=== PATIENT | female | born 1960 | race Caucasian/White ===

== ENCOUNTER 2017-01-07 18:20 | Emergency (ER) | payer MEDICARE ==
[~2017-01-07] VITALS: Ht 162.6 cm; Wt 90.7 kg
[2017-01-07 19:21] LABS: BASO # 0.1 x10^3/uL (0.0-0.2); BASO % 2 % (0-3); EOS % 5 % (0-3); HEMATOCRIT 41.4 % (36.0-47.0); LYMPH # 3.5 x10^3/uL (1.0-4.8); LYMPH % 45 % (24-48); MEAN CORPUSCULAR HEMOGLOBIN 33 pg (25-35); MEAN CORPUSCULAR HGB CONC 34 g/dL (31-37); MEAN CORPUSCULAR VOLUME 97 fL (79-100); MONO % 9 % (0-9); NEUT % 40 % (31-73); PLATELET COUNT 324 x10^3/uL (140-400); RED BLOOD COUNT 4.28 x10^6/uL (3.50-5.40); RED CELL DISTRIBUTION WIDTH 15.6 % (11.5-14.5); WHITE BLOOD COUNT 7.8 x10^3/uL (4.0-11.0)
[2017-01-07 19:26] LABS: BILIRUBIN,URINE NEGATIVE (NEG); GLUCOSE,URINE NEGATIVE (NEG); NITRITE,URINE NEGATIVE (NEG); PH,URINE 5.5; PROTEIN,URINE NEGATIVE (NEG-TRACE); UROBILINOGEN,URINE 0.2 mg/dL (0.2 mg/dL)
--- NOTE | 2017-01-07 19:27 | PHYS DOC ---
Past Medical History Past Medical History: Anxiety, Depression, Diverticulosis, Kidney Stone Additional Past Medical Histor: BILATERAL EAR INFECTION Past Surgical History: Tubal ligation Additional Past Surgical Histo: Bladder, bilateral ear. Alcohol Use: Occasionally Drug Use: None Adult General Chief Complaint Chief Complaint: ABDOMINAL PAIN HPI HPI 56-year-old female presenting to the emergency department with right-sided flank pain. She describes it as sharp intermittent and radiates down to the right lower quadrant and groin and without alleviating factors. She denies nausea or vomiting. She reports a history of kidney stones and a history of surgical tubal ligation. Review of systems is negative for chest pain shortness of breath fevers chills polyuria or dysuria. She denies hematuria. All other review of systems is negative unless otherwise noted in history of present illness. ED course: 56-year-old female presenting with right flank pain. Initial vital signs showed the patient be tachycardic and afebrile. Patient appeared uncomfortable in the examination room unable to find a comfortable position, fidgety. Soft nontender abdomen without rebound tenderness or guarding present. Negative McBurneys point. Negative De Paz sign. No ecchymosis present. Blood work obtained, IV fluids administered along with nausea and pain medications. CT the abdomen pelvis ordered. Workup unremarkable. Patient was then discharged home with oral pain medications to follow-up with in the next few days. The patient was then discharged home in stable condition to follow up with their primary care physician over the next 2-3 days. They were to return if their symptoms worsened or if they were concerned for any reason. [id number] discharge instructions and return precautions were given. Patient's questions were answered to their satisfaction. Patient is comfortable plan. Review of Systems Review of Systems SEE ABOVE. Current Medications Current Medications Current Medications Medications (Trade) Dose Ordered Sig/Camille Start Time Stop Time Status Last Admin Dose Admin Hydromorphone HCl (Dilaudid) 0.5 mg PRN Q1HR PRN 01/07/17 19:30 01/08/17 19:29 01/07/17 19:39 0.5 MG Ondansetron HCl (Zofran) 4 mg 1X ONCE 01/07/17 19:45 01/07/17 19:46 DC 01/07/17 19:38 4 MG Sodium Chloride 1,000 ml @ 1,000 mls/hr 1X ONCE 01/07/17 19:30 01/07/17 20:29 DC 01/07/17 19:38 1,000 MLS/HR Allergies Allergies Allergies Coded Allergies Type Severity Reaction Last Updated Verified No Known Drug Allergies 07/11/14 No Physical Exam Physical Exam SEE ABOVE Constitutional: Well developed, well nourished, non-toxic appearance. [] HENT: Normocephalic, atraumatic, bilateral external ears normal, oropharynx moist, no oral exudates, nose normal. [] Eyes: PERRLA, EOMI, conjunctiva normal, no discharge. [] Neck: Normal range of motion, no tenderness, supple, no stridor. [] Cardiovascular:Heart rate regular rhythm, no murmur [] Lungs & Thorax: Bilateral breath sounds clear to auscultation [] Abdomen: Bowel sounds normal, soft, no tenderness, no masses, no pulsatile masses. [] Skin: Warm, dry, no erythema, no rash. [] Back: No tenderness, no CVA tenderness. [] Extremities: No tenderness, no cyanosis, no clubbing, ROM intact, no edema. [] Neurologic: Alert and oriented X 3, normal motor function, normal sensory function, no focal deficits noted. [] Psychologic: Affect normal, judgement normal, mood normal. [] Current Patient Data Vital Signs Vital Signs Date Time Temp Pulse Resp B/P (MAP) Pulse Ox O2 Delivery O2 Flow Rate FiO2 01/07/17 19:39 18 96 Room Air 01/07/17 19:00 98 138/95 (109) 01/07/17 18:29 97.9 97.9 Lab Values Laboratory Tests Test 01/07/17 19:10 White Blood Count 7.8 x10^3/uL (4.0-11.0) Red Blood Count 4.28 x10^6/uL (3.50-5.40) Hemoglobin 14.0 g/dL (12.0-15.5) Hematocrit 41.4 % (36.0-47.0) Mean Corpuscular Volume 97 fL (79-100) Mean Corpuscular Hemoglobin 33 pg (25-35) Mean Corpuscular Hemoglobin Concent 34 g/dL (31-37) Red Cell Distribution Width 15.6 % (11.5-14.5) H Platelet Count 324 x10^3/uL (140-400) Neutrophils (%) (Auto) 40 % (31-73) Lymphocytes (%) (Auto) 45 % (24-48) Monocytes (%) (Auto) 9 % (0-9) Eosinophils (%) (Auto) 5 % (0-3) H Basophils (%) (Auto) 2 % (0-3) Neutrophils # (Auto) 3.1 x10^3uL (1.8-7.7) Lymphocytes # (Auto) 3.5 x10^3/uL (1.0-4.8) Monocytes # (Auto) 0.7 x10^3/uL (0.0-1.1) Eosinophils # (Auto) 0.4 x10^3/uL (0.0-0.7) Basophils # (Auto) 0.1 x10^3/uL (0.0-0.2) Urine Collection Type Unknown Urine Color Yellow Urine Clarity Clear Urine pH 5.5 Urine Specific [place] 1.010 Urine Protein Negative mg/dL (NEG-TRACE) Urine Glucose (UA) Negative mg/dL (NEG) Urine Ketones (Stick) Negative mg/dL (NEG) Urine Blood Negative (NEG) Urine Nitrite Negative (NEG) Urine Bilirubin Negative (NEG) Urine Urobilinogen Dipstick 0.2 mg/dL (0.2 mg/dL) Urine Leukocyte Esterase Negative (NEG) Urine RBC 0 /HPF (0-2) Urine WBC 0 /HPF (0-4) Urine Squamous Epithelial Cells Few /LPF Urine Bacteria 0 /HPF (0-FEW) Sodium Level 146 mmol/L (136-145) H Potassium Level 4.1 mmol/L (3.5-5.1) Chloride Level 111 mmol/L (98-107) H Carbon Dioxide Level 24 mmol/L (21-32) Anion Gap 11 (6-14) Blood Urea Nitrogen 20 mg/dL (7-20) Creatinine 0.8 mg/dL (0.6-1.0) Estimated GFR (Cockcroft-Gault) 74.7 BUN/Creatinine Ratio 25 (6-20) H Glucose Level 98 mg/dL (70-99) Calcium Level 8.2 mg/dL (8.5-10.1) L Total Bilirubin 0.3 mg/dL (0.2-1.0) Aspartate Amino Transferase (AST) 21 U/L (15-37) Alanine Aminotransferase (ALT) 28 U/L (14-59) Alkaline Phosphatase 101 U/L (46-116) Troponin I Quantitative < 0.017 ng/mL (0.000-0.055) Total Protein 6.3 g/dL (6.4-8.2) L Albumin 3.6 g/dL (3.4-5.0) Albumin/Globulin Ratio 1.3 (1.0-1.7) Lipase 197 U/L (73-393) Laboratory Tests 01/07/17 19:10 Laboratory Tests 01/07/17 19:10 EKG EKG [] Radiology/Procedures Radiology/Procedures [] Course & Med Decision Making Course & Med Decision Making Pertinent Labs and Imaging studies reviewed. (See chart for details) [] Dragon Disclaimer Dragon Disclaimer This electronic medical record was generated, in whole or in part, using a voice recognition dictation system. Departure Departure Impression: Primary Impression: Right flank pain Disposition: HOME, SELF-CARE Condition: STABLE Referrals: STEPHANY VAUGHN (PCP) Patient Instructions: Flank Pain Additional Instructions: Thank you for allowing us to participate in your care today. Followup with your primary care physician in 3 days if your symptoms do not improve. Call your Primary Doctor tomorrow and inform them of your visit today. If you do not have a primary care provider you can ask for a list of our primary care providers. Return to the emergency department you have any new or concerning findings. This should be evaluated by the primary care physician and any necessary consulting services for continued management within a few days after discharge. Return to emergency room if you have any new or concerning symptoms including but not limited to fever, chills, nausea, vomiting, intractable pain, any new rashes, chest pain, shortness of air, uncontrolled bleeding, difficulty breathing, and/or vision loss. You may have been prescribed medication that can change in your level of thinking and ability to operate machinery. These medications include hydrocodone and Ativan. Also, Benadryl has been known to do this as well. Be sure to check with your pharmacist and ask if the medications you've prescribed can affect your level of consciousness. I recommend not operating heavy machinery or driving while on medication such as these. Scripts Hydrocodone Bit/Acetaminophen (HYDROCODONE-APAP 5-325 ) 1 Each Tablet 1 TAB PO PRN Q6HRS Y for PAIN, #15 TAB 0 Refills Be careful as this medication may cause you to be drowsy or tired. Do not drive on this medication. Prov: BLAYNE AYALA MD 01/07/17 BLAYNE AYALA MD Jan 07, 2017 19:27
[2017-01-07] MEDS ORDERED: IV NORMAL SALINE 1000ML BAG 1,000 ML IV ONE (19:30)
[2017-01-07 19:39] LABS: BACTERIA,URINE 0 /HPF (0-FEW); RBC,URINE 0 /HPF (0-2); SQUAMOUS EPITHELIAL CELL,UR FEW /LPF; WBC,URINE 0 /HPF (0-4)
[2017-01-07] MEDS: HYDROmorphone 2 MG/ML VIAL IV PRN ×2 (19:39→21:13)
[2017-01-07 19:40] LABS: CALCIUM 8.2 mg/dL (8.5-10.1); CREATININE 0.8 mg/dL (0.6-1.0); GFR 74.7; POTASSIUM 4.1 mmol/L (3.5-5.1)
[2017-01-07] MEDS ORDERED: ONDANSETRON PF 4 MG/2 ML VIAL. IV ONE (19:45)
[2017-01-07 19:49] LABS: ALBUMIN 3.6 g/dL (3.4-5.0); ALBUMIN/GLOBULIN RATIO 1.3 (1.0-1.7); TOTAL BILIRUBIN 0.3 mg/dL (0.2-1.0); TOTAL PROTEIN 6.3 g/dL (6.4-8.2)
--- NOTE | 2017-01-07 20:08 | RAD ---
CT abdomen and pelvis without contrast Indication:severe Rt flank pain today, hx kidney stones, prior sent. . Technique: Contiguous axial images are obtained through the abdomen and pelvis. No intravenous or oral contrast per request. Multiplanar reformatted images obtained. Exposure: One or more of the following individualized dose reduction techniques were utilized for this examination: 1. Automated exposure control 2. Adjustment of the mA and/or kV according to patient size 3. Use of iterative reconstruction technique. Comparison:July 17, 2014. Findings: Urinary tracts: No evidence of urinary tract calculus. No evidence of hydronephrosis or ureteric dilatation. Evaluation of solid viscera, bowel and vasculature is compromised by the noncontrast technique. Lower thorax: Lung bases are clear. Pneumoperitoneum:No gross pneumoperitoneum. Liver: Unremarkable Spleen: Unremarkable Pancreas: Unremarkable Kidneys: No apparent abnormality. Adrenals:No evidence of mass. Gallbladder: No calcified stone Aorta: Abdominal aorta is nonaneurysmal Lymph nodes: No significant enlargement GI tract: Small hiatal hernia. No bowel obstruction. A few small colonic diverticula are noted. Mild retained stool throughout the colon. Appendix: Not clearly visualized. Small fat-containing anterior abdominal wall hernia is again identified. Ascites: No gross ascites. Urinary bladder: Not opacified and not adequately distended for evaluation. No evidence of pelvic mass. Bones: Multilevel spondylosis of the visualized spine. IMPRESSION: No evidence of urinary tract calculus or obstruction. No acute findings. Mild constipation. Electronically signed by: Walter Green MD (01/07/2017 8:05 PM) [id number]
[2017-01-07] MEDS ORDERED: HYDR-2758 PO (20:21)
[2017-01-07 21:30] VITALS: BP 111/66
== END 2017-01-07 22:00 | disposition home or self-care (01) ==
LOC: ER 18:20
DX: R10.9 Unspecified abdominal pain (principal); R00.0 Tachycardia, unspecified; F41.9 Anxiety disorder, unspecified; F32.9 Major depressive disorder, single episode, unspecified; Z87.442 Personal history of urinary calculi; Z98.51 Tubal ligation status
CPT/HCPCS: 36415; 74176; 80053; 81001; 83690; 84484; 85027; 96361; 96374; 96375; 99285; J1170; J2405; J7030

== ENCOUNTER → 2020-01-14 | Outpatient (CLI) | payer OTHER ==
[~2020-01-14] MED LIST: HYDR-2761 PO
--- NOTE | 2020-01-16 11:23 | SLEEP ---
DATE OF STUDY: 01/15/2020 SLEEP STUDY REFERRING PHYSICIAN: Erum Babin DO The patient is a 59-year-old who weighs 218 pounds with a BMI of 38.6. The patient's Casanova score was 23. The patient underwent home sleep study performed at [facility]. Total recording time was 200 minutes. During the night of the study, the patient had 41 obstructive apneas, 47 mixed apneas, no central apneas and 5 hypopneas. The patient's AHI was 27.8 per hour. Nocturnal oximetry study revealed an average oxygen saturation 95% with the lowest of 83%. A 1.1 minutes were spent in oxygen saturation less than 90%. Mean heart rate 92 beats per minute. IMPRESSION: 1. Moderate obstructive sleep apnea at an AHI of 27.8 per hour. 2. No significant nocturnal hypoxia. RECOMMENDATIONS: 1. The patient would benefit from treatment of sleep apnea with CPAP. 2. Once the patient is optimally treated then follow up in 4-6 weeks to assess compliance with CPAP and to document clinical improvement. 3. Weight loss is advised. 4. Avoid [employer] depressants. 5. Cautioned regarding driving until symptoms of sleep apnea resolve with the use of CPAP. LOUIE APPIAH MD DR: GERBER/filiberto JOB#: [id number] / [id number] ERUM Sanchez DO
== END | disposition home or self-care (01) ==
LOC: RT 12:01
PROVIDERS: ATTEND Family Medicine
DX: G47.10 Hypersomnia, unspecified (principal)
CPT/HCPCS: G0399

== ENCOUNTER → 2020-11-03 | Outpatient (CLI) | payer OTHER ==
--- NOTE | 2020-11-03 12:23 | KCIC ---
EXAM: Right knee, 3 views. HISTORY: Pain. Falls. COMPARISON: None. FINDINGS: 3 views of the right knee are obtained. There is mild tricompartmental joint space narrowin g and spurring. There is a small joint effusion. There is a corticated ossicle superior to the anteri or tibial tubercle, likely due to the sequela of remote Lawrence-Schlatter disease. IMPRESSION: 1. Mild tricompartmental osteoarthritis of the right knee with small joint effusion. 2. No acute osseous finding. Electronically signed by: Poly Holland MD (11/03/2020 12:20 PM) [id number]
== END ==
LOC: KCIC 11:09
PROVIDERS: ATTEND Family Medicine
DX: M17.11 Unilateral primary osteoarthritis, right knee (principal)
CPT/HCPCS: 73562

== ENCOUNTER → 2021-08-26 | Outpatient (CLI) | payer MEDICARE ==
[~2021-08-26] MED LIST changes: +ACET500T68 PO
--- NOTE | 2021-08-26 13:17 | KCIC ---
XR CHEST 2V INDICATION: COUGH. UNEXPLAINED COUGH SINCE COMPARISON STUDY: None. FINDINGS: Lungs: Normal lung volume. No pulmonary mass or consolidation. The tracheobronchial tree and hilar st ructures are normal. Pleura: No pleural effusion or pneumothorax. Heart and Mediastinum: The cardiomediastinal silhouette is normal. The great vessels of the thorax ar e normal. Bones and Soft Tissues: Degenerative changes of the spine. IMPRESSION: No acute cardiopulmonary process. Electronically signed by: Zion Stock MD (08/26/2021 1:15 PM) [id number]
== END ==
LOC: KCIC 10:06
PROVIDERS: ATTEND Family Medicine
DX: R05.9 Cough, unspecified (principal); M47.819 Spondylosis without myelopathy or radiculopathy, site unspecified
CPT/HCPCS: 71046

== ENCOUNTER 2021-08-29 08:59 | Emergency (ER) | payer MEDICARE ==
[~2021-08-29] VITALS: Ht 160 cm; Wt 133.8 kg
[~2021-08-29 08:59] MED LIST changes: -ACET500T68 PO
[2021-08-29] MEDS ORDERED: ACETAMINOPHEN 500 MG TABLET PO ONE (09:45)
[2021-08-29] MEDS ORDERED: oxyCODONE IR 5 MG TABLET PO ONE (09:45)
--- NOTE | 2021-08-29 09:57 | RAD ---
XR HAND_RIGHT 3 VIEWS Clinical indications: Reason: pain. injury /pain Findings: There is posterior and lateral dislocation of the fifth middle phalanx with respect to the fifth proximal phalanx. No acute fracture is evident. No lytic process is evident. There is signific ant primary degenerative osteoarthritis of the first carpal metacarpal joint. Scaphoid bone appears i ntact. IMPRESSION: Dislocation of the fifth PIP joint. No acute fracture. Electronically signed by: Brian Cabrera MD (08/29/2021 9:55 AM) [id number]
[2021-08-29] MEDS ORDERED: ACET500T68 PO (10:56)
--- NOTE | 2021-08-29 10:56 | PHYS DOC ---
Past Medical History Past Medical History: Anxiety, Depression, Diverticulosis, Kidney Stone Additional Past Medical Histor: BILATERAL EAR INFECTION Past Surgical History: Tubal ligation Additional Past Surgical Histo: Bladder, bilateral ear. Smoking Status: Current Every Day Smoker Alcohol Use: Heavy Additional Information: DRINK WHISKEY DAILY Drug Use: None Adult General Chief Complaint Chief Complaint: HAND PROBLEM HPI HPI The patient is a 61-year-old female who presents for evaluation of right pinky discomfort and deformity with onset after she tripped and fell prior to arrival, landing with a lot of her weight on her pinky finger. No other injury during the episode. Did not strike her head or neck or hit or hurt any other part of her body. Alert and oriented x4, pleasantly and appropriately interactive and in no acute distress. No therapy for symptoms prior to arrival. Review of Systems Review of Systems A 12 point review of systems was completed and was negative except where noted in HPI above. Current Medications Current Medications Current Medications Medications (Trade) Dose Ordered Sig/Camille Start Time Stop Time Status Last Admin Dose Admin Acetaminophen (Tylenol) 1,000 mg 1X ONCE 08/29/21 09:45 08/29/21 09:46 DC 08/29/21 09:38 1,000 MG Oxycodone HCl (Roxicodone) 5 mg 1X ONCE 08/29/21 09:45 08/29/21 09:46 DC 08/29/21 09:38 5 MG Allergies Allergies Allergies Coded Allergies Type Severity Reaction Last Updated Verified No Known Drug Allergies 07/11/14 No Physical Exam Physical Exam 61-year-old female appearing nontoxic and in no acute distress. Head is normocephalic and atraumatic. Neck is supple and nontender. Oropharynx is moist. Lungs are clear to auscultation at all stations. There is a normal S1 and S2 without rubs or gallops and capillary refill is appropriate, less than 2 seconds globally. Abdomen is soft, nontender and nondistended. Skin is warm and dry without cyanosis, clubbing or edema. Psychiatrically, the patient demonstrates appropriate mood and affect and is alert. Evaluation of the extremities reveals BUEs and BLEs neurovascularly intact distally with strength out of 5, sensation intact light touch in all nerve distributions, radial, DP and PT pulses 2+ and equal bilaterally, capillary refill less than 2 seconds, hands and feet warm and well perfused. No dependent peripheral edema distally. No calf tenderness or swelling bilaterally. Homans test is negative bilaterally. There is an obvious closed deformity at the PIP joint of the right pinky finger. Right small finger is neurovascularly intact distal to the injury. Current Patient Data Vital Signs Vital Signs Date Time Temp Pulse Resp B/P (MAP) Pulse Ox O2 Delivery O2 Flow Rate FiO2 08/29/21 09:38 24 Room Air 08/29/21 09:28 98.3 103 145/69 (94) 99 98.3 EKG EKG [] Radiology/Procedures Radiology/Procedures Dislocation reduction procedure: Right small finger reduced by me using traction/countertraction. Patient tolerated the procedure well and there were no complications. XR HAND_RIGHT 3 VIEWS Clinical indications: Reason: pain. injury /pain Findings: There is posterior and lateral dislocation of the fifth middle phalanx with respect to the fifth proximal phalanx. No acute fracture is evident. No lytic process is evident. There is significant primary degenerative osteoarthritis of the first carpal metacarpal joint. Scaphoid bone appears intact. IMPRESSION: Dislocation of the fifth PIP joint. No acute fracture. Electronically signed by: Luis Daniel Cabrera MD (08/29/2021 9:55 AM) [id number] DICTATED and SIGNED BY: LUIS DANIEL CABRERA MD DATE: 08/29/21 [id number] 0 Course & Med Decision Making Course & Med Decision Making Right small finger dislocation reduced by me as per procedure note above. Tolerated well. No complications. Right small finger distally is neurovascularly intact post procedure. Will place in volar finger splint and will refer to orthopedics for close follow-up in the office. Will prescribe Tylenol for discomfort. Patient understands that if she feels worse instead of better or develops other new symptoms of concern that she should return to the emergency department immediately for reevaluation. All questions are answered. Dragon Disclaimer Dragon Disclaimer This electronic medical record was generated, in whole or in part, using a voice recognition dictation system. Departure Departure Impression: Primary Impression: Dislocation, finger closed Disposition: 01 HOME / SELF CARE / HOMELESS Condition: IMPROVED Referrals: PEDRITO VIVEROS MD (PCP) JULIA BOOKER MD Patient Instructions: Finger Dislocation Additional Instructions: Follow-up very closely with your primary care doctor in the office in the next 2 to 4 days for a reevaluation of your symptoms and a discussion of next best steps in care. Take a 500 mg extra Tylenol pill every 6 hours as needed for di scomfort. Rest, ice and elevate. Wear the volar finger splint to protect and stabilize the area in question. We are referring you to Dr. Julia Booker of orthopedics. Please make an appointment to be seen in the next 1 week. Please continue to wear the splint until Dr. Booker clears you to remove it. Return to the emergency department right away for worsening symptoms of any kind or with any other new symptoms of concern. Scripts Acetaminophen (ACETAMINOPHEN) 500 Mg Tablet 1 TAB PO PRN Q6HRS PRN for pain or fever for 15 Days, #50 TAB 0 Refills Prov: SUJEY NGUYEN MD 08/29/21 Problem Qualifiers Primary Impression: Dislocation, finger closed Encounter type: initial encounter Qualified Codes: S63.259A - Unspecified dislocation of unspecified finger, initial encounter SUJEY NGUYEN MD Aug 29, 2021 10:56
[2021-08-29 11:25] VITALS: BP 139/77
--- NOTE | 2021-08-29 11:28 | RAD ---
EXAM: Right fifth finger 3 views. HISTORY: Dislocation reduction. COMPARISON: Today's prior study. FINDINGS: The fifth proximal interphalangeal dislocation has been reduced. There is mild residual hyp erextension on the lateral projection. No fractures are identified. First carpometacarpal osteoarthritis is moderate to severe. Distal interphalangeal osteoarthritis is mild diffusely. IMPRESSION: 1. Reduction of the fifth proximal interphalangeal dislocation. Electronically signed by: Annalisa Jaimes MD (08/29/2021 11:25 AM) [id number]
== END 2021-08-29 11:28 | disposition home or self-care (01) ==
LOC: ER 08:59
DX: S63.286A Dislocation of proximal interphalangeal joint of right little finger, initial encounter (principal); F17.200 Nicotine dependence, unspecified, uncomplicated; F10.20 Alcohol dependence, uncomplicated; Y90.9 Presence of alcohol in blood, level not specified; W01.0XXA Fall on same level from slipping, tripping and stumbling without subsequent striking against object, initial encounter; Y93.89 Activity, other specified; Y92.89 Other specified places as the place of occurrence of the external cause; Y99.8 Other external cause status
CPT/HCPCS: 26725; 73130; 73140; 99284-25; 99285-25